=== PATIENT | male | born 1955 | race Caucasian/White ===

== ENCOUNTER 2019-07-18 05:39 | Day surgery (SDC) | payer MEDICARE, OTHER ==
[2019-07-18] VITALS (16 sets, daily range): BP systolic 103–144; BP diastolic 40–81
[~2019-07-18] VITALS: Ht 182.9 cm; Wt 81.1 kg
[2019-07-18] MEDS ORDERED: LOSA100T3 PO (06:15)
[2019-07-18] MEDS ORDERED: nitroGLYCERIN 0.4mg SUBLingual tab SL PRN (06:15)
[2019-07-18] MEDS ORDERED: diphenhydrAMINE 25mg capsule PO PRN (06:15)
[2019-07-18] MEDS ORDERED: LORazepam 0.5 MG tablet PO PRN (06:15)
[2019-07-18] MEDS ORDERED: normal saline 1,000 ML IV SCH (06:15)
[2019-07-18] MEDS ORDERED: HCTZ25T PO (06:15)
[2019-07-18 06:55] LABS: EOSINOPHILS # (AUTO) 0.1 X10'3 (0-0.9); MEAN CORPUSCULAR HEMOGLOBIN 31.5 PG (27.0-31.0)
[2019-07-18 06:57] LABS: BASOPHILS # (AUTO) 0.1 X10'3 (0-0.2); BASOPHILS % (AUTO) 1.2 % (0-1); EOSINOPHILS % (AUTO) 1.2 % (0-6); HEMATOCRIT 43.2 % (42.0-52.0); HEMOGLOBIN 15.4 g/dl (14.0-17.9); LYMPHOCYTES # (AUTO) 0.6 X10'3 (1.1-4.8); LYMPHOCYTES % (AUTO) 5.4 % (21-51); MEAN CORPUSCULAR HGB CONC 35.6 g/dL (33.0-36.5); MEAN CORPUSCULAR VOLUME 88.5 FL (78-98); MEAN PLATELET VOLUME 8.1 FL (7.4-10.4); MONOCYTES # (AUTO) 0.7 X10'3 (0-0.9); MONOCYTES % (AUTO) 6.2 % (2-12); NEUTROPHILS # (AUTO) 9.5 X10'3 (1.8-7.7); PLATELET COUNT 717 X10'3 (140-440); RED BLOOD COUNT 4.88 X10'6 (4.70-6.10); RED CELL DISTRIBUTION WIDTH 14.4 % (11.5-14.5)
[2019-07-18 07:03] LABS: ALBUMIN 3.8 G/DL (3.4-5.0); ANION GAP 8 (8-16); BLOOD UREA NITROGEN 24 MG/DL (7-18); BUN/CREATININE RATIO 22.9 (5.4-32.0); CALCIUM 8.9 MG/DL (8.5-10.1); CHLORIDE 98 MMOL/L (99-107); CREATININE 1.05 MG/DL (0.60-1.10); GLUCOSE 108 MG/DL (70-104); POTASSIUM 4.5 MMOL/L (3.5-5.1); SODIUM 131 MMOL/L (135-145); TOTAL CARBON DIOXIDE 25.2 MMOL/L (24-32); eGFR 71 ML/MIN
[2019-07-18 07:23] LABS: PARTIAL THROMBOPLASTIN TIME 30 SECONDS (22-32)
[2019-07-18 07:42] LABS: GIANT PLATELET FEW; LARGE PLATELETS FEW; PLATELET ESTIMATE INCREASED
[2019-07-18] MEDS ORDERED: iohexol 350MG/ML 100ml bottle IV ONE (08:40)
[2019-07-18] MEDS ORDERED: midazolam 2 mg/2 ml injection ONE ×2 (08:40→09:04)
[2019-07-18] MEDS ORDERED: iohexol 350 MG/ML 50ML vial IV ONE (08:40)
[2019-07-18] MEDS ORDERED: LIDOcaine 1% (10mg/ml)w/preservative injection 20ml MDV ONE (08:40)
[2019-07-18] MEDS ORDERED: fentaNYL/PF 50MCG/1 ML 2ML syringe ONE (08:40)
[2019-07-18] MEDS ORDERED: normal saline 1000ml 1,000 ML IV SCH (10:00)
== END 2019-07-18 16:15 | disposition home or self-care (01) ==
LOC: SSTAY O 05:39
PROVIDERS: ATTEND Internal Medicine Cardiovascular Disease
DX: R94.39 Abnormal result of other cardiovascular function study (principal); I25.10 Atherosclerotic heart disease of native coronary artery without angina pectoris; I10 Essential (primary) hypertension; J44.9 Chronic obstructive pulmonary disease, unspecified; E78.5 Hyperlipidemia, unspecified; Z79.899 Other long term (current) drug therapy
CPT/HCPCS: 36415; 71046; 80048; 85025; 85610; 85730; 93458; 99152; 99153; C1760; C1769; J1644; J2001; J2250; J3010; J7030; Q0163; Q9967; A4620; A6258

== ENCOUNTER 2019-10-31 06:22 | Day surgery (SDC) | payer MEDICARE, OTHER ==
[2019-10-29 10:54] LABS: BASOPHILS # (AUTO) 0.1 X10'3 (0-0.2); EOSINOPHILS # (AUTO) 0.1 X10'3 (0-0.9); HEMATOCRIT 36.3 % (42.0-52.0); HEMOGLOBIN 11.7 g/dl (14.0-17.9); LYMPHOCYTES # (AUTO) 1.7 X10'3 (1.1-4.8); LYMPHOCYTES % (AUTO) 18.1 % (21-51); MEAN CORPUSCULAR HEMOGLOBIN 25.8 PG (27.0-31.0); MEAN CORPUSCULAR HGB CONC 32.2 g/dL (33.0-36.5); MEAN CORPUSCULAR VOLUME 80.2 FL (78-98); MEAN PLATELET VOLUME 7.4 FL (7.4-10.4); MONOCYTES # (AUTO) 0.5 X10'3 (0-0.9); MONOCYTES % (AUTO) 5.6 % (2-12); NEUTROPHILS # (AUTO) 6.9 X10'3 (1.8-7.7); NEUTROPHILS % (AUTO) 74.3 % (42-75); PLATELET COUNT 769 X10'3 (140-440); RED BLOOD COUNT 4.53 X10'6 (4.70-6.10); RED CELL DISTRIBUTION WIDTH 17.4 % (11.5-14.5); WHITE BLOOD COUNT 9.3 X10'3 (4.5-11.0)
[2019-10-29 11:08] LABS: PARTIAL THROMBOPLASTIN TIME 29 SECONDS (22-32)
[2019-10-29 11:18] LABS: ALANINE AMINOTRANSFERASE 24 U/L (12-78); ALBUMIN/GLOBULIN RATIO 1.3 (1.1-1.5); ALKALINE PHOSPHATASE 66 IU/L (46-116); ANION GAP 8 (8-16); ASPARTATE AMINO TRANSFERASE 23 U/L (10-37); BILIRUBIN,TOTAL 0.4 MG/DL (0.1-1.0); BLOOD UREA NITROGEN 13 MG/DL (7-18); CALCIUM 8.8 MG/DL (8.5-10.1); CHLORIDE 97 MMOL/L (99-107); CREATININE 0.93 MG/DL (0.60-1.10); GLUCOSE 85 MG/DL (70-104); POTASSIUM 4.4 MMOL/L (3.5-5.1); SODIUM 130 MMOL/L (135-145); TOTAL CARBON DIOXIDE 25.2 MMOL/L (24-32); TOTAL PROTEIN 7.2 G/DL (6.4-8.2); eGFR 82 ML/MIN
[2019-10-29 12:33] LABS: ANISOCYTOSIS 1+; GIANT PLATELET FEW; PLATELET ESTIMATE INCREASED
[2019-10-29 12:34] LABS: LARGE PLATELETS FEW
[~2019-10-31] VITALS: Ht 177.8 cm; Wt 78.8 kg
[~2019-10-31 06:22] MED LIST: HCTZ25T PO; LOSA100T3 PO
[2019-10-31 06:40] VITALS: BP 125/66
[2019-10-31] MEDS ORDERED: LORazepam 0.5 MG tablet PO PRN (06:40)
[2019-10-31] MEDS ORDERED: nitroGLYCERIN 0.4mg SUBLingual tab SL PRN (06:40)
[2019-10-31] MEDS ORDERED: normal saline 1,000 ML IV SCH (06:40)
[2019-10-31] MEDS ORDERED: diphenhydrAMINE 25mg capsule PO PRN (06:40)
[2019-10-31] MEDS ORDERED: NITR0.4T48 SL (06:51)
[2019-10-31] MEDS ORDERED: ASPI-1264 PO (06:51)
[2019-10-31] MEDS ORDERED: MULT-955 PO (06:51)
[2019-10-31] MEDS ORDERED: ATOR10TA87 PO (06:51)
[2019-10-31] MEDS ORDERED: CLOP75TA15 PO (06:51)
[2019-10-31] MEDS ORDERED: HCTZ25T PO (06:51)
[2019-10-31] MEDS ORDERED: midazolam 2 mg/2 ml injection ONE (08:26)
[2019-10-31] MEDS ORDERED: fentaNYL/PF 50MCG/1 ML 2ML syringe ONE (08:26)
[2019-10-31] MEDS ORDERED: iohexol 350 MG/ML 50ML vial IV ONE (08:27)
[2019-10-31] MEDS ORDERED: LIDOcaine 1% (10mg/ml)w/preservative injection 20ml MDV ONE (08:27)
[2019-10-31] MEDS ORDERED: iohexol 350MG/ML 100ml bottle IV ONE (08:27)
== END 2019-10-31 08:45 | disposition home or self-care (01) ==
LOC: SSTAY O 06:22
PROVIDERS: ATTEND Internal Medicine Cardiovascular Disease
DX: I25.10 Atherosclerotic heart disease of native coronary artery without angina pectoris (principal); Z53.8 Procedure and treatment not carried out for other reasons; D69.6 Thrombocytopenia, unspecified; Z79.01 Long term (current) use of anticoagulants; Z79.899 Other long term (current) drug therapy
CPT/HCPCS: 36415; 71046; 80053; 85025; 85610; 85730; J1644; J2001; J2250; J3010; Q9967

== ENCOUNTER 2024-05-16 08:38 | Outpatient (CLI) | payer MEDICARE, OTHER ==
[~2024-05-16] VITALS: Ht 172.7 cm; Wt 71.7 kg
[~2024-05-16 08:38] MED LIST changes: +ASPI-1264 PO; +ATOR10TA87 PO; +CLOP75TA15 PO; -HCTZ25T PO; +HYDR25TA5 PO; +LOSA-418 PO; -LOSA100T3 PO; +MULT-955 PO; +NITR0.4T48 SL
[2024-05-16 09:12] LABS: BASOPHILS # (AUTO) 0.2 X10'3 (0-0.2); MEAN CORPUSCULAR VOLUME 83.9 FL (78-98); WHITE BLOOD COUNT 12.5 X10'3 (4.5-11.0)
[2024-05-16 09:13] LABS: BASOPHILS % (AUTO) 1.5 % (0-1); EOSINOPHILS # (AUTO) 0.3 X10'3 (0-0.9); HEMATOCRIT 29.7 % (42.0-52.0); LYMPHOCYTES % (AUTO) 8.1 % (21-51); MEAN CORPUSCULAR HEMOGLOBIN 25.5 PG (27.0-31.0); MEAN CORPUSCULAR HGB CONC 30.4 g/dL (33.0-36.5); MEAN PLATELET VOLUME 7.7 FL (7.4-10.4); MONOCYTES # (AUTO) 1.1 X10'3 (0-0.9); MONOCYTES % (AUTO) 8.6 % (2-12); NEUTROPHILS % (AUTO) 79.8 % (42-75); PLATELET COUNT 861 X10'3 (140-440); RED BLOOD COUNT 3.54 X10'6 (4.70-6.10); RED CELL DISTRIBUTION WIDTH 22.3 % (11.5-14.5)
[2024-05-16 09:23] LABS: APTT 31 SECONDS (22-32); INR 1.1 INR; PROTHROMBIN TIME 11.9 SECONDS (9.0-12.0)
[2024-05-16 09:31] LABS: ALANINE AMINOTRANSFERASE 9 U/L (12-78); ALBUMIN 2.7 G/DL (3.4-5.0); ALBUMIN/GLOBULIN RATIO 0.8 (1.1-1.5); ALKALINE PHOSPHATASE 93 IU/L (46-116); ANION GAP 9 (8-16); ASPARTATE AMINO TRANSFERASE 13 U/L (10-37); BILIRUBIN,TOTAL 0.5 MG/DL (0.1-1.0); BLOOD UREA NITROGEN 21 MG/DL (7-18); BUN/CREATININE RATIO 21.6 (10.0-20.0); CALCIUM 8.4 MG/DL (8.5-10.1); CHLORIDE 107 MMOL/L (99-107); CREATININE 0.97 MG/DL (0.60-1.10); GLUCOSE 101 MG/DL (70-104); POTASSIUM 4.3 MMOL/L (3.5-5.1); PRO BRAIN NATRIURETIC PEPTIDE 11410 PG/ML (0-125); SODIUM 141 MMOL/L (135-145); TOTAL CARBON DIOXIDE 25.5 MMOL/L (24-32); eGFR 77 ML/MIN
[2024-05-16 09:37] LABS: ANISOCYTOSIS 3+; BURR CELLS FEW; HYPOCHROMASIA 1+; PLATELET ESTIMATE INCREASED
[2024-05-16 09:38] LABS: ELLIPTOCYTES FEW; POLYCHROMASIA FEW; TARGET CELLS FEW
[2024-05-16] MEDS ORDERED: IODIXANOL 320 MG/ML INFUS..BTL 100ML IV ONE (09:53)
[2024-05-16 11:46] LABS: ABG BASE EXCESS -0.5 mmol/L (-2.0-3.0); ABG HCO3 23.2 mmol/L (21.0-28.0); ABG OXYGEN SATURATION 95.8 % (94.0-98.0); ABG PCO2 (T) 34.5 mmHg (35.0-48.0); ABG PH (T) 7.446 (7.350-7.450); ABG PO2 (T) 72.5 mmHg (83.0-108.0); ALLEN'S TEST POSITIVE; FCOHb 0.3 % (0.5-1.5); FHHb 4.2 % (0.0-5.0); FMetHb 0.3 % (0.0-1.5); FO2Hb 95.2 % (94.0-98.0); MODE ROOM AIR; TOTAL HEMOGLOBIN 9.5 G/dl (13.5-17.5)
[2024-05-16] MEDS: albuterol 2.5 MG/3 ML nebule NEB ONE (12:18)
[2024-05-16 12:22] VITALS: PULSE 68; RESP 16; O2SAT 96
[2024-05-16 12:34] VITALS: PULSE 66; RESP 16
== END 2024-05-16 23:59 | disposition home or self-care (01) ==
LOC: RAD 08:38
PROVIDERS: ATTEND Internal Medicine Cardiovascular Disease
DX: I35.0 Nonrheumatic aortic (valve) stenosis (principal); R06.02 Shortness of breath; I65.29 Occlusion and stenosis of unspecified carotid artery; Z00.01 Encounter for general adult medical examination with abnormal findings; I25.10 Atherosclerotic heart disease of native coronary artery without angina pectoris; R59.9 Enlarged lymph nodes, unspecified; J98.11 Atelectasis; J90 Pleural effusion, not elsewhere classified; L90.5 Scar conditions and fibrosis of skin; N28.1 Cyst of kidney, acquired; M47.9 Spondylosis, unspecified; D65 Disseminated intravascular coagulation [defibrination syndrome]; I70.8 Atherosclerosis of other arteries; Q53.112 Unilateral inguinal testis
CPT/HCPCS: 36415; 36600; 71275; 74174; 75572; 80053; 82803; 83880; 85008; 85018; 85025; 85610; 85730; 93005; 93306; 93880; 94060; 94727; 94729; 94760; Q9967